=== PATIENT | female | born 1945 | race Caucasian/White ===

== ENCOUNTER 2018-07-16 08:03 | Day surgery (SDC) | payer OTHER ==
[2018-07-16] MEDS ORDERED: LIDOCAINE 4% SOLUTION 50 ML BTL (09:41)
[2018-07-16] MEDS ORDERED: FENTAnyl 50 MCG/ML VIAL (10:34)
[2018-07-16] MEDS ORDERED: MIDAZOLAM 1 MG/ML 2 ML INJ (10:34)
== END 2018-07-16 10:59 | disposition home or self-care (01) ==
LOC: GIL 08:03
DX: Z12.11 Encounter for screening for malignant neoplasm of colon (principal); K29.50 Unspecified chronic gastritis without bleeding; D12.3 Benign neoplasm of transverse colon; K64.0 First degree hemorrhoids; K57.30 Diverticulosis of large intestine without perforation or abscess without bleeding; K20.8 Other esophagitis
CPT/HCPCS: 43239; 88305; 88312